=== PATIENT | female | born 1995 | race Caucasian/White ===

== ENCOUNTER 2016-11-21 18:30 | Emergency (ER) | payer OTHER ==
[2016-11-21 22:00] LABS: HEMOGLOBIN 11.7 gm/dl (12.3-15.3); RED BLOOD COUNT 4.13 M/UL (4.00-5.10); WHITE BLOOD COUNT 6.4 K/UL (4.5-11.0)
[2016-11-21 22:20] LABS: BUN/CREATININE RATIO 8 (0-10)
== END 2016-11-22 01:40 | disposition home or self-care (01) ==
LOC: ER1 18:30
PROVIDERS: Family Medicine
DX: R10.813 Right lower quadrant abdominal tenderness (principal); R11.0 Nausea; Z90.49 Acquired absence of other specified parts of digestive tract; K21.9 Gastro-esophageal reflux disease without esophagitis; Z79.899 Other long term (current) drug therapy
CPT/HCPCS: 36415; 80053; 81001; 83690; 84703; 85025; 87086; 96361; 96374; 96375; 99284; J2270; J2405; J7030; J7050; Q9962

== ENCOUNTER 2022-02-19 01:20 | Emergency (ER) | payer OTHER ==
[~2022-02-19 01:20] MED LIST: FLEXERIL 10 MG10 MG PO; PREDNISONE 50 M50 MG PO; Voltaren Gel 1 % TOP
== END 2022-02-19 04:00 | disposition home or self-care (01) ==
LOC: ER1 01:20
DX: S51.012A Laceration without foreign body of left elbow, initial encounter (principal); W01.10XA Fall on same level from slipping, tripping and stumbling with subsequent striking against unspecified object, initial encounter; Y92.009 Unspecified place in unspecified non-institutional (private) residence as the place of occurrence of the external cause; Z23 Encounter for immunization
CPT/HCPCS: 12001; 73080; 90471; 90715; 99283